=== PATIENT | female | born 1970 | race African-American/Black ===

== ENCOUNTER 2020-01-19 12:28 | Emergency (ER) | payer MEDICAID ==
[~2020-01-19] VITALS: Ht 167.6 cm; Wt 83.4 kg
[~2020-01-19 12:28] MED LIST: ALBU6.7H11; GLYB5TAB4; LISI-604; METF-416; PROAIR; RANI-655; [UNRECOGNIZED DRUG - REMARK]
[2020-01-19] MEDS ORDERED: CEPHALEXIN 250MG CAPSULE PO ONE (13:00)
[2020-01-19] MEDS ORDERED: LIDOCAINE HCL 1% 20ML VIAL (Pyxis) INJ INFIL ONE (13:00)
[2020-01-19] MEDS ORDERED: ACETAMINOPHEN 325MG TABLET PO ONE (13:00)
[2020-01-19] MEDS ORDERED: SULFAMETHOXAZOLE/TRIMETHOPRIM 800/160MG TABLET PO ONE (13:00)
[2020-01-19 14:24] VITALS: BP 177/97
== END 2020-01-19 14:31 | disposition home or self-care (01) ==
LOC: ER 12:28
DX: L03.011 Cellulitis of right finger (principal); J45.909 Unspecified asthma, uncomplicated; E11.9 Type 2 diabetes mellitus without complications; I10 Essential (primary) hypertension; Z90.49 Acquired absence of other specified parts of digestive tract; Z98.890 Other specified postprocedural states; F12.10 Cannabis abuse, uncomplicated; Z79.899 Other long term (current) drug therapy
CPT/HCPCS: 99284; J3490

== ENCOUNTER 2020-07-02 14:39 | Emergency (ER) | payer MEDICAID ==
[~2020-07-02] VITALS: Ht 165.1 cm; Wt 74.0 kg
[2020-07-02] MEDS ORDERED: LIDOCAINE HCL/PF 1% 10 MG/ML 5ML VIAL IJ ONE (15:45)
[2020-07-02] MEDS ORDERED: CLONIDINE 0.2MG TABLET PO ONE (15:45)
[2020-07-02] MEDS ORDERED: INSULIN REGULAR (HUMULIN R) 300UNITS/3ML VIAL SUBCUT ONE (16:30)
[2020-07-02 17:44] VITALS: BP 112/66
== END 2020-07-02 18:17 | disposition home or self-care (01) ==
LOC: ER 14:39
DX: L03.012 Cellulitis of left finger (principal); I10 Essential (primary) hypertension; E11.65 Type 2 diabetes mellitus with hyperglycemia; J45.909 Unspecified asthma, uncomplicated; F12.10 Cannabis abuse, uncomplicated; F17.200 Nicotine dependence, unspecified, uncomplicated; Z90.49 Acquired absence of other specified parts of digestive tract; Z98.890 Other specified postprocedural states; Z79.899 Other long term (current) drug therapy
CPT/HCPCS: 10060; 82962; 93005; 96372; 99283; J1815; Z7610